=== PATIENT | female | born 1950 | race Caucasian/White ===

== ENCOUNTER 2021-02-20 00:42 | Emergency (ER) | payer MEDICAID, MEDICARE ==
[~2021-02-20] VITALS: Ht 160 cm; Wt 56.8 kg
[~2021-02-20 00:42] MED LIST: CLON-528 PO; CYCL-145 PO; DULO60CA60 PO; ESTR0.6261 PO; LEVO75TA PO; LIDO700A5 TP; MONT-40 PO; PANT-47 PO; RIZA10TA27 PO
[2021-02-20 00:43] VITALS: BP 147/65
[2021-02-20] MEDS ORDERED: ondansetron 4mg rapidly disintigrating tab PO ONE (01:00)
[2021-02-20] MEDS ORDERED: HYDROmorphone 1 mg/ml syringe IM ONE (01:00)
[2021-02-20] MEDS ORDERED: sucralfate 1 gm tablet PO ONE (01:50)
== END 2021-02-20 01:56 | disposition home or self-care (01) ==
LOC: ER 00:42
DX: S62.612A Displaced fracture of proximal phalanx of right middle finger, initial encounter for closed fracture (principal); S63.254A Unspecified dislocation of right ring finger, initial encounter; G89.29 Other chronic pain; E03.9 Hypothyroidism, unspecified; K21.9 Gastro-esophageal reflux disease without esophagitis; G43.909 Migraine, unspecified, not intractable, without status migrainosus; Z90.49 Acquired absence of other specified parts of digestive tract; Z90.710 Acquired absence of both cervix and uterus; Z79.899 Other long term (current) drug therapy; Z88.0 Allergy status to penicillin; Z88.5 Allergy status to narcotic agent; Z88.8 Allergy status to other drugs, medicaments and biological substances; X58.XXXA Exposure to other specified factors, initial encounter; Y93.89 Activity, other specified; Y92.89 Other specified places as the place of occurrence of the external cause; Y99.8 Other external cause status
CPT/HCPCS: 26725; 73130; 96372; 99284; J1170; 26755; 99283

== ENCOUNTER 2021-08-17 08:59 | Day surgery (SDC) | payer OTHER ==
[~2021-08-17] VITALS: Ht 160 cm; Wt 57.3 kg
[2021-08-17 09:14] VITALS: BP 140/70
[2021-08-17] MEDS ORDERED: fentaNYL/PF 50MCG/1 ML 2ML syringe ONE (09:18)
[2021-08-17] MEDS ORDERED: LIDOcaine Viscous 15ml cup ONE (09:19)
[2021-08-17] MEDS ORDERED: MIDAZolam 1 MG/ML 5ML VIAL ONE (09:19)
[2021-08-17] MEDS ORDERED: HYDR-3965 PO (11:13)
[2021-08-17 12:48] VITALS: BP 112/63
[2021-08-17 13:08] VITALS: BP 113/66
[2021-08-17 13:18] VITALS: BP 113/60
== END 2021-08-17 13:24 | disposition home or self-care (01) ==
LOC: GI LAB 08:59
PROVIDERS: ATTEND Internal Medicine Gastroenterology
DX: R10.13 Epigastric pain (principal); K21.00 Gastro-esophageal reflux disease with esophagitis, without bleeding; K44.9 Diaphragmatic hernia without obstruction or gangrene; Z87.442 Personal history of urinary calculi; Z87.11 Personal history of peptic ulcer disease; Z88.8 Allergy status to other drugs, medicaments and biological substances; Z88.0 Allergy status to penicillin; Z88.5 Allergy status to narcotic agent
CPT/HCPCS: 43239; G0500; J2250; J3010; J7030; Z7512; 99152; A4620